=== PATIENT | female | born 1975 | race Caucasian/White ===

== ENCOUNTER → 2021-04-24 10:12 | Outpatient (BNVA) | payer OTHER, SELFPAY | PROVIDERS: Visit Provider Family Medicine Adult Medicine | DX: Z01.419 Encounter for gynecological examination (general) (routine) without abnormal findings (principal); R10.9 Unspecified abdominal pain; K64.4 Residual hemorrhoidal skin tags | CPT/HCPCS: 87624 ==

== ENCOUNTER 2021-05-22 13:07 | Outpatient (CLI) | payer OTHER, SELFPAY ==
--- NOTE | 2021-05-22 13:00 | MM_ITS ---
WS: [id number] BILATERAL DIGITAL SCREENING MAMMOGRAPHY WITH CAD CLINICAL INFORMATION: First Mammogram HISTORY: Screening mammogram. No current complaints. COMPARISON: None. TECHNIQUE: Bilateral CC and MLO views. FINDINGS: The breasts are composed of heterogeneous fibroglandular density tissue, which can limit the detectio n of small underlying mass lesions. No suspicious mass, asymmetry, calcifications, or architectural d istortion. No evidence of malignancy. MM/[place] [id number] IMPRESSION: BI-RADS: 1-Negative FOLLOW UP: 1 Year Follow-up Recommend return to annual screening mammography.
== END 2021-05-22 13:08 | disposition home or self-care (01) ==
PROVIDERS: PCP Family Medicine Adult Medicine; Visit Provider Family Medicine Adult Medicine
DX: Z12.31 Encounter for screening mammogram for malignant neoplasm of breast (principal)
CPT/HCPCS: 77067

== ENCOUNTER → 2021-05-31 15:53 | Outpatient (BNVA) | payer OTHER, SELFPAY | PROVIDERS: PCP Family Medicine Adult Medicine; Visit Provider Surgery | DX: Z01.812 Encounter for preprocedural laboratory examination (principal); Z20.822 Contact with and (suspected) exposure to COVID-19 | CPT/HCPCS: 87635 ==

== ENCOUNTER 2021-06-05 07:52 | Day surgery (SDC) | payer OTHER, SELFPAY ==
[2021-06-02 16:31] VITALS: BMI 21.4
[2021-06-05] VITALS (7 sets, daily range): BP systolic 110–145; BP diastolic 66–91; PULSE 72–103; RESP 12–20; TEMP 36.1–36.7; O2SAT 99–100
[2021-06-05] MEDS: sodium chloride 0.9% 1,000 ML 30 ML IV (09:23)
[2021-06-05] MEDS: acetaminophen 1,000 MG/100 ML PIGGYBACK 400 MG IV (09:24)
[2021-06-05 09:26] LABS: OR HCG Qualitative Urine Negative (Negative)
--- NOTE | 2021-06-05 10:23 | ANES.PREANE2 ---
Pre-Anesthetic Assessment Pre-Anesthetic Assessment: Height/Weight: Height 1.52 m Weight 49.895 kg Temp Pulse Resp BP Pulse Ox 98.1 F 72 18 136/85 100 06/05/21 09:12 06/05/21 09:12 06/05/21 09:12 06/05/21 09:12 06/05/21 09:12 Preop Diagnosis: External hemorrhoids/screening colonoscopy Proposed Procedure: Operation Date: 06/05/21 10:05 Proposed Procedures p Exam Under Anesthesia 12215 [id number] K64.4(Not Applicable) - Ryan Mitchell MD s Hemorroidectomy(Not Applicable) - Ryan Mitchell MD s Colonoscopy(Not Applicable) - Ryan Mitchell MD Was Beta Tamra taken within 24 hours: N/A Was Clonidine taken within 24 hours: N/A Last intake: Intake Last Liquid Date 06/04/21 Last Liquid Time 22:00 Last Solid Date 06/02/21 Last Solid Time 16:00 Social: Social History: Tobacco and No alcohol Exam: Pre-Anes Outpt Exam: alert, oriented x 3 and regular rate & rhythm Airway: Submandibular: WNL Cervical ROM: WNL MP: 2 Dentition: Full History/ROS: No significant history except as noted Anesthetic Plan: ASA status: 2 Anesthesia: Choice Risk of > 500 ml blood loss (7ml/kg in children): No Meds/Allergies Current Medications: Current Medications Generic Name Dose Route Start Last Admin Trade Name Freq PRN Reason Stop Dose Admin Sodium Chloride 1,000 mls @ 30 ml s/hr 06/05/21 09:15 06/05/21 09:23 Sodium Chloride 0.9% IV 06/06/21 09:14 30 mls/hr .Q24H CECILIO Administration PFSH Anesthesia PFSH: Medical History External hemorrhoid Health maintenance examination Pain in abdomen on palpation Social History Alcohol intake: current Alcohol intake frequency: holidays/special occasions only Adopted: Yes Marital status: Number of children: 1 Number of grandchildren: 0 Current occupational status: unemployed History of recent travel: No Female Reproductive History: Date of last menstrual period: 05/19/21 Data Anesthesia Other Labs: Laboratory Results - last 48 hr 06/05/21 09:25 Urine HCG, Qual Negative Cardiac Studies: No Data to Display
--- NOTE | 2021-06-05 11:06 | W.PM.OPSUD ---
Surgery/Procedure H&P Update DATE OF PROCEDURE: June 05, 2021 DATE H&P PERFORMED: 05/25/21 H&P UPDATE INFORMATION: I have reviewed H&P completed within last 30 days, I have examined patient prior to procedure and No changes to prior documentation PREOP DIAGNOSIS: External hemorrhoids/screening colonoscopy PRIMARY INDICATION FOR PROCEDURE: The same PLANNED PROCEDURE: Operation Date: 06/05/21 10:05 Proposed Procedures p Exam Under Anesthesia 46185 [id number] K64.4(Not Applicable) - Ryan Mitchell MD s Hemorroidectomy(Not Applicable) - Ryan Mitchell MD s Colonoscopy(Not Applicable) - Ryan Mitchell MD
[2021-06-05] MEDS: piperacillin-tazobactam 3.375 GM in sodium chloride 0.9% (plus) 50 ML IV (11:24)
--- NOTE | 2021-06-05 12:22 | PM.OP ---
Operative Report Date of procedure: June 05, 2021 Pre-op Diagnosis: External hemorrhoids/screening colonoscopy Post-op diagnosis: other (Right lower lateral internal and external hemorrhoid and anterior skin tag) Procedure Done: 1-Colonoscopy 2-Exam under anesthesia with hemorrhoidectomy Specimens removed/disposition: Specimen #1 right lower lateral internal/external hemorrhoid Specimen #2 anterior skin tag. Surgeon: Ryan Mitchell Power Sweeper Operator: hemodialysis lab technician Verenice Circulating nurse Allyson Anesthesia: General (GETA service trainer Alban) Estimated blood loss (mL): 10 Condition: stable Disposition: same day Procedure: Patient was identified in the holding area, was taken to the OR placed first in supine position,IV antibiotics were given with induction time-out was done verifying the patient's name, date of , and procedure, all were in agreement. General anesthetic was administered by the anesthesia provider, patient was placed in left lateral position SCDs were on and functioning. Perianal examination showed right lower lateral external hemorrhoid and anterior skin tag,otherwise no evidence of clinically palpable anal masses. Following that a digital rectal examination was done, the colonoscope was then introduced via the anus under direct visualization, all the way to the proximal to the cecum, prep of the colon was appropriate, otherwise there were no polyps identified or masses or diverticular disease or strictures, the scope was then retrieved back, gas was deflated on the way out.Retroflex was done at the end showing showed right lower lateral internal hemorrhoid, time to retrieve the scope from the cecum to the anus exceeded 6 minutes Prep and drape of the perineum and th eperianal area was done under the usual sterile technique All pressure points were padded,Injection of 20 mL of Exparel to block the pudendal nerve on both sides,guiding point was the ischial spine on each side located by the examining finger A lubricated self-retaining proctoscope was inserted, evidence of external hemorrhoid below the dentate line Started by introducing a wet sponge to prevent any residual colon prep from contaminating the site of the excision, and under direct visualization I started dissecting the right lower lateral hemorrhoid tissues after application of hemostats,dissection was carried by using the harmonic scalpel, excised tissues were sent for permanent pathology, followed by running 2-0 chromic catgut. Attention was then deviated to the anterior skin tag that was excised using the harmonic scalpel followed by 3-0 chromic catgut for approximation of edges. The white sponge was retrieved at the end of the procedure and count was completed Hemostasis was achieved, irrigation was done.Followed by irrigation.A piece of Surgicel /piece of Xeroform impregnated with lubricant jelly was placed in the anal canal, attached to 2-0 silk suture, to help retrieving it by the patient later on. ABDs were applied followed by surgical pants Patient was repositioned to supine position, counts of instruments,needles and sponges were completed at the end of the procedure.Patient was extubated and taken to the PACU are in stable condition.
--- NOTE | 2021-06-05 12:34 | P.PCN_ITS ---
PACU note PACU note: VSS, Good respiratory effort, report to MALTED MILK MASHER Post-Anesthesia Exam: awake
--- NOTE | 2021-06-05 12:34 | PM.PACU ---
PACU note PACU note: VSS, Good respiratory effort, report to SENIOR BACKUP ADMINISTRATOR Post-Anesthesia Exam: awake
--- NOTE | 2021-06-05 17:03 | ANE.PACU2 ---
Inpatient post-anesthesia follow up: Airway intact: Yes Vital signs: Temperature 97 F Pulse Rate 78 Respiratory Rate 18 Blood Pressure 138/79 Pulse Oximetry 99 Oxygen Delivery Me thod Room Air Oxygen Flow Rate 8 Fraction of Inspir ed Oxygen Nausea and vomiting: No Pain level: 2 Mental status: Baseline
== END 2021-06-05 13:40 | disposition home or self-care (01) ==
PROVIDERS: PCP Family Medicine Adult Medicine; Visit Provider Surgery
PROC: (CPT 45378; principal; 2021-06-05 09:55)
PROC: (CPT 45378; 2021-06-05 09:55)
PROC: 0DJD8ZZ Inspection of Lower Intestinal Tract, Via Natural or Artificial Opening Endoscopic (ICD-10-PCS; CPT 45378; 2021-06-05 09:55)
DX: Z12.11 Encounter for screening for malignant neoplasm of colon (principal); K64.8 Other hemorrhoids; K64.4 Residual hemorrhoidal skin tags; F17.290 Nicotine dependence, other tobacco product, uncomplicated
CPT/HCPCS: 45378; 46250; 81025; 84703; 88304; 96365; C9290; J0330; J1100; J2405; J2543; J2704; J3010; J3490; J7030